=== PATIENT | female | born 1990 | race Caucasian/White ===

== ENCOUNTER 2016-09-16 05:19 | Observation (INO) | payer BC ==
[2016-09-16] VITALS (9 sets, daily range): BP systolic 112–128; BP diastolic 60–67
[~2016-09-16] VITALS: Ht 175.3 cm; Wt 106.1 kg
--- NOTE | 2016-09-16 09:11 | DIAGNOSTIC IMAGING REPORT ---
PROCEDURE: ABDOMEN/PELVIS WITH CONTRAST CLINICAL INDICATION: ABDOMINAL PAIN, pelvic pain TECHNIQUE: 125 ml of Isovue 300 were injected intravenously and axial images were obtained of the abdomen and pelvis with sagittal and coronal reformations. COMPARISON: None. FINDINGS: ABDOMEN: Clear lung bases. Normal sized heart. No hiatal hernia. The liver, gallbladder, adrenal glands, kidneys, and spleen are normal. 7 mm lipoma in the distal tail of the pancreas. The abdominal aorta is normal in its course and caliber. No atherosclerosis. There are no suspicious calcifications, retroperitoneal adenopathy or masses. The stomach, upper bowel loops, and mesentery are normal. Intact anterior abdominal wall. No free fluid or inflammation. The appendix is mildly enlarged measuring approximately 9 mm in the proximal aspect. There is a 9 mm density within the proximal lumen. Distally, the appendiceal caliber becomes normal. No significant periappendiceal inflammatory changes or wall hyperemia. PELVIS: The pelvic small bowel loops are normal. Normal amount of stool in the colon and rectum. The uterus, ovaries, urinary bladder, and pelvic vessels are normal. No adenopathy, free fluid, or pelvic mass. Intact osseous structures. IMPRESSION: 1. Findings suspicious for early acute appendicitis. 2. Discussed with Dr. Riley in the emergency room. All CT scans at this facility use dose modulation, iterative reconstruction, and/or weight-based dosing when appropriate to reduce radiation dose to as low as reasonably achievable.
--- NOTE | 2016-09-16 09:17 | DIAGNOSTIC IMAGING REPORT ---
PROCEDURE: US ABDOMEN ULTRASOUND-LIMITED INDICATION: RUQ PAIN TECHNIQUE: Briones scale and color Doppler sonographic images of the abdomen were obtained. COMPARISON: None. FINDINGS: Liver measures 19.9 cm. Normal gallbladder and CBD (5 mm). Negative Escoto's sign. Normal head of the pancreas. Remainder of the pancreas is obscured by bowel gas. Aorta and IVC are patent. Normal hepatopetal flow. Normal right kidney measures 12.6 cm. IMPRESSION: 1. Poor visualization of the pancreas, otherwise negative right upper quadrant ultrasound
--- NOTE | 2016-09-16 09:38 | ED ORDER SUMMARY ---
..... Patient: ZACK HAINES OrderSheet [facility] VisitID: [id number] [place] [address] 25y, F Registration Date/Time: 09/16/2016 ORDER SHEET Weight: 103.8 kg (stated) Allergies: No Known Drug Allergy GENERAL ORDERS: Urine Urgent (05:28 09/16/2016 AMcQuoid ER Tech1 per protocol) (Ack 5:28 AMcQuoid ER Tech1) (5:32 AMcQuoid ER Tech1) UA-Culture if indicated Urgent (05:28 09/16/2016 AMcQuoid ER Tech1 per protocol) (Ack 5:28 AMcQuoid ER Tech1) (5:32 AMcQuoid ER Tech1) CMP Urgent (06:00 09/16/2016 AMcQuoid ER Tech1 verbal order read back to Elizabeth BRADFORD) (6:10 AMcQuoid ER Tech1) CBC w Diff Urgent (06:00 09/16/2016 AMcQuoid ER Tech1 verbal order read back to Elizabeth BRADFORD) (6:10 AMcQuoid ER Tech1) Amylase Urgent (06:00 09/16/2016 AMcQuoid ER Tech1 verbal order read back to Elizabeth BRADFORD) (6:10 AMcQuoid ER Tech1) Lipase Urgent (06:00 09/16/2016 AMcQuoid ER Tech1 verbal order read back to Elizabeth BRADFORD) (6:10 AMcQuoid ER Tech1) US Abdomen Limited (Yes) Urgent (07:55 09/16/2016 Elizabeth BRADFORD) (Ack 7:57 Dane) (8:30 Dane) CT Abd/Pel w Cont (No) (N/A) Urgent (08:29 09/16/2016 Elizabeth BRADFORD) (Ack 8:30 Dane) (8:55 Dane) MEDICATION ORDERS: IV FLUIDS: Toradol IV 30 mg (NOW) (07:04 09/16/2016 Elizabeth BRADFORD) (Ack 7:22 SStone R.N.) (7:29 SStone R.N.) IV Saline Lock (07:04 09/16/2016 Elizabeth BRADFORD) (7:14 CBradburn R.N.) Invanz IV 1 gm (NOW) (09:53 09/16/2016 Elizabeth BRADFORD) (Ack 10:05 SStone R.N.) (10:50 SStone R.N.) Dilaudid IV 1 mg (HIGH ALERT MEDICATION, NOW) (09:54 09/16/2016 Elizabeth BRADFORD) (Ack 10:05 SStone R.N.) (10:23 SStone R.N.) Zofran IV 4 mg (NOW) (09:54 09/16/2016 Elizabeth BRADFORD) (Ack 10:05 SStone R.N.) (10:23 SStone R.N.) IV Lactated Ringers : initial bolus none -, then 150 mL/hr (NOW) (09:54 09/16/2016 Elizabeth BRADFORD) (Ack 10:05 SStone R.N.) (10:24 SStone R.N.) ORDER SHEET NOTES: [Electronically signed by Manuela Huber R.N. (11:25 09/16/2016)] [Electronically signed by Vera Riley MD (12:06 09/24/2016)] [Electronically locked/signed by Manuela Huber R.N. (11:25 09/16/2016)]
--- NOTE | 2016-09-16 09:38 | ED CLINICAL REPORT ---
Clinical Report - Physicians/Mid Levels [facility] [address] [place] [address] 09/16/2016 5:21 Patient: ZACK HAINES Time Seen: 06:28. Arrived- By private vehicle. Historian- patient. HISTORY OF PRESENT ILLNESS Chief Complaint: ABDOMINAL PAIN. At its maximum, severity described as moderate. When seen in the E.D., severity described as moderate. Modifying factors- worsened by movement. Not relieved by anything. It is described as "pain" and it is described as located in the right abdomen. This started several days ago and is still present. The patient has had nausea and intermittent vomiting. No loss of appetite or diarrhea. Similar symptoms previously: None. Recent medical care: Not recently seen/assessed. REVIEW OF SYSTEMS No constipation, black stools, hematemesis, difficulty with urination or pain with urination. No urinary frequency, bloody stools, fever, headache or sore throat. No blurred vision, chest pain, difficulty breathing, cough or joint pain. No skin rash, chills or back pain. Denies current . All systems otherwise negative, except as recorded above. PAST HISTORY Problems: Hepatitis. Additional Surgeries: no known surgeries. Medications: Citrimax HCA, diet supplement. Tylenol Oral. Apple Cider Vinegar Oral. MedroxyPROGESTERone Acetate Oral. Allergies: No Known Drug Allergy. SOCIAL HISTORY Smoker- current status unknown. History of drug use: marijuana. No alcohol use. ADDITIONAL NOTES The nursing notes have been reviewed. PHYSICAL EXAM Vital Signs: 09/16/2016 05:35 BP: 130/71. HR: 82. RR: 18. O2 saturation: 96%. Temp: 98.1 F. Have been reviewed. Appearance: Alert. Oriented X3. No acute distress. Eyes: Pupils equal, round and reactive to light. Eyes normal inspection. ENT: Nose normal. Neck: Normal inspection. CVS: Normal heart rate and rhythm. Heart sounds normal. Pulses normal. Respiratory: No respiratory distress. Breath sounds normal. Abdomen: Soft. Moderate tenderness in the right lower quadrant. No guarding or rebound tenderness. Back: Normal inspection. No CVA tenderness. Skin: Skin warm and dry. Normal skin color. No rash. Normal skin turgor. Extremities: Extremities exhibit normal ROM. No lower extremity edema. Neuro: Oriented X 3. No motor deficit. No sensory deficit. LABS, X-RAYS, AND EKG Abdominal CT: Normal aorta. Normal liver, spleen, pancreas, gallbladder and adrenals. Normal kidneys. Uterus normal. Adnexa normal. Bladder normal. There is evidence of appendicitis. No mass. No free fluid. No bony lesion. No diverticulitis. Study type: abdomen and pelvis. Abdominal CT performed with IV contrast. The study was independently viewed by me, interpreted by the radiologist and contemporaneously by me and discussed with the radiologist. Prior studies were not available for comparison. Laboratory Tests: UA-Culture if indicated: (DEIDRE: 09/16/2016 05:30) ( MsgRcvd 09/16/2016 05:56) Final results Test Result Flag Units (Reference) URINE COLOR YELLOW URINE APPEARANCE CLEAR URINE GLUCOSE NEGATIVE (NEGATIVE) URINE BILIRUBIN 1+ (NEGATIVE) URINE KETONE NEGATIVE (NEGATIVE) URINE SPECIFIC GRAVITY >= 1.030 (1.010-1.030) URINE PH 6.0 (5.0-8.0) URINE PROTEIN TRACE (NEGATIVE) URINE UROBILINOGEN 0.2 EU/dL (0.2-1.0) URINE NITRITE NEGATIVE (NEGATIVE) URINE BLOOD 3+ (NEGATIVE) URINE LEUK ESTERASE NEGATIVE (NEGATIVE) URINE RBC 0-1 rbc/hpf (0-1) URINE WBC 0-1 wbc/hpf (0-1) URINE EPITHELIAL CELLS 3-5 EPI/hpf (0-5) URINE BACTERIA FEW (1+) (NONE SEEN) URINE COMMENT CULT NOT INDICATED 2+ MUCUSICTO TEST NEGURINE CULTURES ARE SET-UP BASED ON THE FOLLOWING CRITERIA:POSITIVE NITRITEPOSITIVE LEUKOCYTE ESTERASEGREATER THAN 10 WHITE BLOOD CELLSMODERATE (2+) OR GREATER BACTERIA Urine: (DEIDRE: 09/16/2016 05:30) ( ScgRcvd 09/16/2016 05:45) Final results Test Result Flag Units (Reference) URINE NEGATIVE CBC w Diff: (EDIDRE: 09/16/2016 06:10) ( MsgRcvd 09/16/2016 06:16) Final results Test Result Flag Units (Reference) WHITE BLOOD COUNT 10.2 K/uL (4.5-11.5) RED BLOOD COUNT 3.89 L M/uL (4.00-5.20) HEMOGLOBIN 12.3 gm/dL (12.0-16.0) HEMATOCRIT 36.5 % (36.0-46.0) MEAN CELL VOLUME 94 fL (80-100) MEAN CORPUSCULAR HGB 32 pg (26-34) MEAN CORPUSCULAR HGB CONC 34 g/dL (31-37) RED CELL DISTRIBUTION WIDTH 12.7 % (11.6-14.8) PLATELET COUNT 219 K/uL (150-400) NEUTROPHIL % 75.1 H % (50-75) LYMPH % 15.8 L % (25-40) MONO % 7.5 % (3-14) EOSINOPHIL % 1.2 % (0-4) BASOPHIL % 0.4 % (0-2) CMP: (DEIDRE: 09/16/2016 06:10) ( MsgRcvd 09/16/2016 06:29) Final results Test Result Flag Units (Reference) GLUCOSE 99 mg/dL (70-110) BUN 14 mg/dL (7-18) CREATININE 0.7 mg/dL (0.6-1.3) Estimated GFR >60 mL/min Estimated GFR- >60 mL/min Note: Persistent reduction over 3 months in eGFR<60 mL/min/1.73 m2 defines CKD. Patients with eGFR values>=60 mL/min/1.73 m2 may also have CKD if evidence ofpersistent proteinuria. Additional information may be foundat www.kidney.org. SODIUM 139 mmol/L (136-145) POTASSIUM 3.8 mmol/L (3.5-5.1) CHLORIDE 102 mmol/L (98-107) CARBON DIOXIDE 26 mmol/L (21-32) CALCIUM 8.3 L mg/dL (8.5-10.1) TOTAL PROTEIN 8.0 g/dL (6.4-8.2) ALBUMIN 4.3 g/dL (3.3-5.0) BILIRUBIN, TOTAL 0.5 mg/dL (0.0-1.0) ALKALINE PHOSPHATASE 47 U/L (46-116) AST (SGOT) 18 U/L (15-37) ALT (SGPT) 34 U/L (12-78) LIPASE 171 U/L (73-393) AMYLASE 33 U/L (25-115) . Pulse Oximetry: 09/16/2016 05:35 O2 saturation: 96%. (FIO2 - room air). Interpretation: normal. PROGRESS AND PROCEDURES Course of Care: PT was given IV Toradol, Dilaudid, and Zofran for symptomatic relief. Work-up revealed early appendicitis. Pt was started on IV LR and Invanz. Discussed case with on-call health care provider, (Mckenna). Reviewed test results and need for additional work-up. Agreed upon treatment plan and decision to admit. Health care provider will see patient in ED. Old medical records reviewed. Disposition: Admitted to Acute Care via Surgery. Condition: stable and serious. CLINICAL IMPRESSION Acute appendicitis. No perforation or abscess. (Electronically signed by Vera Riley MD 09/24/2016 12:06)
--- NOTE | 2016-09-16 09:38 | ED ORDER SUMMARY ---
..... Patient: ZACK HAINES OrderSheet [facility] VisitID: [id number] [place] [address] 25y, F Registration Date/Time: 09/16/2016 ORDER SHEET Weight: 103.8 kg (stated) Allergies: No Known Drug Allergy GENERAL ORDERS: Urine Urgent (05:28 09/16/2016 AMcQuoid ER Tech1 per protocol) (Ack 5:28 AMcQuoid ER Tech1) (5:32 AMcQuoid ER Tech1) UA-Culture if indicated Urgent (05:28 09/16/2016 AMcQuoid ER Tech1 per protocol) (Ack 5:28 AMcQuoid ER Tech1) (5:32 AMcQuoid ER Tech1) CMP Urgent (06:00 09/16/2016 AMcQuoid ER Tech1 verbal order read back to Elizabeth BRADFORD) (6:10 AMcQuoid ER Tech1) CBC w Diff Urgent (06:00 09/16/2016 AMcQuoid ER Tech1 verbal order read back to Elizabeth BRADFORD) (6:10 AMcQuoid ER Tech1) Amylase Urgent (06:00 09/16/2016 AMcQuoid ER Tech1 verbal order read back to Elizabeth BRADFORD) (6:10 AMcQuoid ER Tech1) Lipase Urgent (06:00 09/16/2016 AMcQuoid ER Tech1 verbal order read back to Elizabeth BRADFORD) (6:10 AMcQuoid ER Tech1) US Abdomen Limited (Yes) Urgent (07:55 09/16/2016 Elizabeth BRADFORD) (Ack 7:57 Dane) (8:30 Dane) CT Abd/Pel w Cont (No) (N/A) Urgent (08:29 09/16/2016 Elizabeth BRADFORD) (Ack 8:30 Dane) (8:55 Dane) MEDICATION ORDERS: IV FLUIDS: Toradol IV 30 mg (NOW) (07:04 09/16/2016 Elizabeth BRADFORD) (Ack 7:22 SStone R.N.) (7:29 SStone R.N.) IV Saline Lock (07:04 09/16/2016 Elizabeth BRADFORD) (7:14 CBradburn R.N.) Invanz IV 1 gm (NOW) (09:53 09/16/2016 Elizabeth BRADFORD) (Ack 10:05 SStone R.N.) (10:50 SStone R.N.) Dilaudid IV 1 mg (HIGH ALERT MEDICATION, NOW) (09:54 09/16/2016 Elizabeth BRADFORD) (Ack 10:05 SStone R.N.) (10:23 SStone R.N.) Zofran IV 4 mg (NOW) (09:54 09/16/2016 Elizabeth BRADFORD) (Ack 10:05 SStone R.N.) (10:23 SStone R.N.) IV Lactated Ringers : initial bolus none -, then 150 mL/hr (NOW) (09:54 09/16/2016 Elizabeth BRADFORD) (Ack 10:05 SStone R.N.) (10:24 SStone R.N.) ORDER SHEET NOTES: [Electronically signed by Manuela Huber R.N. (11:25 09/16/2016)] [Electronically signed by Vera Riley MD (12:06 09/24/2016)] [Electronically locked/signed by Manuela Huber R.N. (11:25 09/16/2016)]
--- NOTE | 2016-09-16 09:38 | ED NURSING NOTES ---
Clinical Report - Nurses [facility] [place] [address] 09/16/2016 5:21 Patient: ZACK HAINES TRIAGE 05:35 09/16/16. BP: 130/71. HR: 82. RR: 18. O2 saturation: 96%. Temp: 98.1 F. Pain level now 09/18. --05:39 McQuoid, Tana, ER Tech1 Triage time 05:35. Acuity: LEVEL 3. Chief Complaint: ABDOMINAL PAIN and DIARRHEA. --05:47 Isabel Santos R.N. Weight: 103.8 kg stated. Height/Length: 108 inches Per Patient. BMI: 13.8. --05:35 McQuoid, Tana, ER Tech1. Medications MedroxyPROGESTERone Acetate Oral. --05:37 McQuoid, Tana, ER Tech1 Apple Cider Vinegar Oral. --05:37 McQuoid, Tana, ER Tech1 Tylenol Oral. --05:38 McQuoid, Tana, ER Tech1 Citrimax HCA, diet supplement. --05:39 McQuoid, Tana, ER Tech1. Allergies No Known Drug Allergy. --05:38 McQuoid, Tana, ER Tech1. History Arrived by private vehicle. Historian: patient. Unaccompanied. Primary physician ([facility]). ( [facility] PAST MEDICAL HX: Immunizations: up-to-date. Last normal menstrual period- Aug 28 2016. 0. Para 0. Abortions 0. Sexual history - sexually active. No contraception. SOCIAL HX: Smoker- current status unknown (electronic cigarrettes). History of occasional drug use: marijuana. Recently used drugs days ago. (2 days ago). No alcohol use. No infectious disease exposure. No known contact with a sick individual. ABUSE ASSESSMENT: No report of abuse. SELF HARM ASSESSMENT: A self harm assessment was performed. The patient answered "no" to the question "Have you recently felt down, depressed, or hopeless?", "Have you noticed less interest or pleasure in doing things?", "Do you have thoughts of harming or killing yourself?", "Are you here because you tried to hurt yourself?", "Have you ever tried to hurt yourself before today?", "Have you recently had thoughts about harming or killing others?" and "Do you have any dangerous items in your possession?". FALL RISK ASSESSMENT: Fall risk assessment completed. No fall risk identified. NUTRITIONAL RISK ASSESSMENT: The nutritional risk assessment revealed no deficiencies. FUNCTIONAL ASSESSMENT: Functional assessment: no impairments noted. LEARNING NEEDS ASSESSMENT: The learning needs assessment revealed no barriers. SKIN INTEGRITY ASSESSMENT: Skin integrity risk assessment completed. No skin integrity risk identified. --05:47 Isabel Santos R.N. PROBLEMS: Hepatitis. --05:47 Isabel Santos R.N. ADDITIONAL SURGERIES: no known surgeries. Interventions ID band on patient. --05:47 Isabel Santos R.N. PHYSICAL ASSESSMENT Ambulatory to room. GENERAL / NEURO / PSYCH: Alert. Oriented X 4. Appears in no acute distress. HEENT: Mucous membranes are pink. RESPIRATORY: Respirations not labored. Breath sounds within normal limits. CVS: Normal sinus rhythm noted. Capillary refill less than 2 seconds. GI / : The patient has diarrhea (on Tuesday). This has occurred twice. Obesity. Abdomen nontender. Abdominal tenderness in the suprapubic area. Bowel sounds within normal limits. No nausea noted. No urethral discharge or vaginal discharge. SKIN: Skin is warm and dry. --05:48 Isabel Santos R.N. NURSING PROGRESS NOTES 05:32. Checked patient name and birthdate: patient confirmed. Clean catch urine collected; sample sent to lab. Specimen labeled in the presence of the patient. --05:32 McQuoid, Tana, ER Tech1 Patient gowned. Reassurance given. Two patient identifiers checked. Call light placed in reach. Side rails up x 1. Bed placed in lowest position. Brakes of bed on. --05:48 Isabel Santos R.N. Patient ready for evaluation- chart flagged. --05:48 Isabel Santos R.N. 06:14. Checked patient name and birthdate: patient confirmed. Blood samples drawn from the right antecubital space by tech per protocol ; labeled in presence of the patient: rainbow set. --06:14 BoazQubrandi, Tana, ER Tech1 07:14 09/16/2016 Site #1 started via IV in the right antecubital space with an 20g angiocath, with aseptic technique and good blood return; one attempt. Saline lock flushed with 10 mL saline. --07:14 Isabel Santos R.N. 07:29 09/16/2016 Toradol IVP 30 mg given over 3 minute(s) via site #1. Allergies verified and confirmed 5 rights. IV patency established. IV site checked: no pain, redness, or swelling. IV flushed thoroughly pre- and post-medication administration. --07:29 Manuela Huber R.N. ( Assumed care, report from HAN[facility]. pt. reports she is feeling slightly better, but still painful 4-510.). --07:30 Manuela Huber R.N. 07:29 09/16/16. BP: 100/47. HR: 58. RR: 18. O2 saturation: 95%. Pain level now: 4/10. --07:30 Manuela Huber R.N. ( Ultrasound in room.). --08:05 Manuela Huber R.N. 09:01 09/16/16. BP: 113/51. HR: 65. RR: 16. O2 saturation: 98%. --09:01 Manuela Huber R.N. ( Pt reports pain level improved since Toradol, now a constant 410 and tolerable.). --09:02 Manuela Huber R.N. 10:22 09/16/16. BP: 120/50. HR: 66. O2 saturation: 96%. --10:23 Manuela Huber R.N. 10:09/16/2016 Dilaudid (HYDROmorphone HCl PF) IVP 1 mg given over 2 minute(s) via site #1. IV patency established. IV site checked: no pain, redness, or swelling. IV flushed thoroughly pre- and post-medication administration. --10:23 Manuela Huber R.N. 10:09/16/2016 Zofran (Ondansetron HCl) IVP 4 mg given over 2 minute(s) via site #1. IV patency established. IV site checked: no pain, redness, or swelling. IV flushed thoroughly pre- and post-medication administration. --10:23 Manuela Huber R.N. 10:24 09/16/2016 Started bag #1 1000 mL IV Fluids IV LACTATED RINGERS; at 150 mL/hr over 6 hour(s) via site #1. Allergies verified and confirmed 5 rights. IV patency established. IV site checked: no pain, redness, or swelling. IV flushed thoroughly pre- and post-medication administration. --10:24 Manuela Huber R.N. 10:50 09/16/2016 Invanz IVP 1 gm given over 1 hour(s) via site #1. Allergies verified and confirmed 5 rights. IV patency established. IV site checked: no pain, redness, or swelling. IV flushed thoroughly pre- and post-medication administration. --10:50 Manuela Huber R.N. 10:50 09/16/16. BP: 101/40. HR: 58. RR: 16. O2 saturation: 96%. Temp: 98.3 F. Pain level now: 06/18. --10:51 Manuela Huber R.N. ( attempt to call report to floor.). --11:03 Manuela Huber R.N. 11:25 09/16/2016 IV Fluids IV LACTATED RINGERS Discontinued: bag #1 infused upon admission. Total amount infused: 150 mL. IV patency established. IV site checked: no pain, redness, or swelling. IV flushed thoroughly. --11:25 Manuela Huber R.N. DISPOSITION / DISCHARGE Departure time: 1120. Admitted to Acute Care (11:20). Transported via stretcher by [facility]. Report was given to a nurse via a phone call. Report included patient's care, treatment, medications, reviewed medication reconcilliation, and condition (including any recent changes or anticipated changes). All questions were answered. Report was acknowledged. (alban). --11:16 Manuela Huber R.N. 11:15 09/16/16. BP: 87/44. HR: 62. RR: 14. O2 saturation: 95%. --11:16 Manuela Huber R.N. 11:18 09/16/16. BP: 103/49. --11:19 Manuela Huber R.N. 11:25 09/16/16. Temp: 98.1 F. Pain level now: 06/18. --11:25 Manuela Huber R.N. Locked/Released at 09/16/2016 11:25 by Manuela Huber R.N.
[2016-09-16] MEDS ORDERED: MEDROXYPROGESTER5 MG PO (11:45)
[2016-09-16] MEDS ORDERED: APPLE CIDER VINEGAR (12:22)
[2016-09-16] MEDS ORDERED: [UNRECOGNIZED DRUG - OTHER] (12:24)
[2016-09-16] MEDS ORDERED: ABILIFY5 MG PO (12:24)
[2016-09-16] MEDS ORDERED: NORCO1 TA1 PO (15:52)
--- NOTE | 2016-09-16 15:53 | Provider's Discharge Care Plan ---
Problem, Goal, Plan Problem List 1. Appendicitis, acute
--- NOTE | 2016-09-16 15:53 | Provider's Discharge Care Plan ---
Problem, Goal, Plan Problem List 1. Appendicitis, acute
--- NOTE | 2016-09-16 20:21 | CONSULTATION REPORT ---
DATE OF CONSULTATION: 09/16/2016 CHIEF COMPLAINT: 1. Abdominal pain HISTORY OF PRESENT ILLNESS: The patient is a 25-year-old woman who reported 4 days ago that she developed some vague abdominal pain and diarrhea. She had decreased appetite. At that time, she had some nausea. Things have improved slightly and she had some intermittent lower nonlocalized abdominal pains over the next few days; however, today, the patient developed persistent lower abdominal pain localized to the right lower quadrant that became increasingly severe, causing her to present to the emergency department. MEDICAL/SURGICAL HISTORY: Past medical history: Hepatitis C, which has been treated with curative medical therapy. She also has polycystic ovarian disease. Past surgical history: She had a liver biopsy, as well as PE tubes at the age of 3. MEDICATIONS: 1. OCP to regulate her periods. 2. Some form of diet pill. ALLERGIES: 1. NONE TO MEDICATIONS. SOCIAL HISTORY: The patient is . She is G0, P0. 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 She smokes e-cigarettes, but not regular cigarettes. She stopped using cannabis about 2 days ago. She does not take ethanol. FAMILY HISTORY: Her mother had diabetes and of congestive heart failure at age 52. REVIEW OF SYSTEMS: The patient reports long-term irregular periods and episodes of spotting. She uses hormonal pills to regulate her cycles. She reports no additional symptoms. She denied bleeding at the time of her diarrheal episode and has not had any rectal bleeding, any hematemesis, palpitations, chest pain, shortness of breath, productive cough, joint or extremity problems, neurologic problems, vision or auditory problems. PHYSICAL EXAMINATION: VITAL SIGNS: Blood pressure 130/71, heart rate of 82, respirations 18, temperature is 98.1, O2 saturation 96%. Weight 103.8 kg, height 108 inches, BMI of 13.8. GENERAL: The patient is alert and cooperative. She responds appropriately. She is oriented to time and place. HEENT: Ears and nose without gross external lesions. Eyes are equal. She is anicteric. NECK: Without palpable masses or thyromegaly. CHEST: Clear without wheeze or rales. HEART: Regular, without murmur or gallop. ABDOMEN: Reveals localized tenderness in the right lower quadrant with involuntary guarding at that location. The patient is nondistended. Bowel sounds are active. EXTREMITIES: Symmetric. She appears to move without restriction. LAB/IMAGING: Lab tests show a normal white count of 10.8, hemoglobin and hematocrit of 12.3 and 36.5. Urinalysis is negative. Negative test. She has normal electrolytes, lipase and amylase. Abdominal ultrasound was negative for gallbladder disease. Her abdominal CT showed a 9 mm appendix with a density at its base suspicious for early acute appendicitis. IMPRESSION: 1. Acute appendicitis. PLAN: I have recommended the patient undergo a laparoscopic appendectomy. I talked to the patient about alternatives, benefits and risks. I talked to her about alternatives such as antibiotic therapy or open appendectomy. I talked about risks including infection, bleeding, scars, pain, damage to local structures and alternative diagnoses. The patient appeared to understand these and other risks and would like to proceed as described to her.
--- NOTE | 2016-09-16 20:27 | OPERATIVE REPORT ---
DATE OF SURGERY: 09/16/2016 SURGEON: Maurilio Andres MD PREOPERATIVE DIAGNOSIS: 1. Acute appendicitis POSTOPERATIVE DIAGNOSIS: 1. Acute suppurative appendicitis PROCEDURE PERFORMED: 1. Laparoscopic appendectomy ANESTHESIA: General. COMPLICATIONS: No intraoperative complications were encountered. INDICATIONS: The patient is a 25-year-old woman with a 4-day history of abdominal symptoms, culminating in localized right lower quadrant pain. The patient also had an abnormal CT scan consistent with acute appendicitis. SURGICAL TECHNIQUE: The patient was taken to the operating room, where a general anesthetic was administered and the patient prepped and draped in the usual sterile fashion. The patient had received IV antibiotics. After sterile prep and drape, a local anesthetic of 0.5% Marcaine with epinephrine was used at each incision site. Three trocars were placed with the first one in the umbilicus after insufflating with a Veress needle. A 5 in the lower midline and a 10 mm in suprapubic position were placed. The appendix was visualized and found be acutely suppurative with erythema and a fibrinous peel. The mesoappendix was taken down using the Thunderbeat device and the base of the appendix doubly clipped with Hem-o-Peter clips. The appendix was clipped on the specimen side, partially transected and bipolar cautery applied to the exposed mucosa. The appendix was then fully transected and pulled up into the cannula and removed from the abdomen. Visualization also demonstrated a large whitish ovary on the right side without superficial cystic structures. Marcaine was instilled, gas was evacuated, and the 10 mm port sites closed at the skin with interrupted subcuticular 4-0 Vicryl suture. Steri-Strips and dressings were placed at all sites. The patient left in good condition.
--- NOTE | 2016-09-24 12:07 | ED DISCHARGE INSTRUCTIONS ---
Patient: ZACK HAINES General Instructions [facility] VisitID: [id number] [address] [place] [address] 25y, F Registration Date/Time: 09/16/2016 Acute appendicitis. No perforation or abscess. (Electronically signed by Vera Riley MD 09/24/2016 12:06)
--- NOTE | 2016-09-24 12:07 | ED MED RECONCILIATION SUMMARY ---
Patient: ZACK HAINES Medication Reconciliation Report [facility] VisitID: [id number] [place] [address] 25y, F Registration Date/Time: 09/16/2016 Weight: 103.8 kg Height/Length: 108 in. BMI: 13.8 ALLERGIES: No Known Drug Allergy The patient's Home Medications are listed below: THE FOLLOWING MEDICATIONS NEED TO BE RECONCILED: Apple Cider Vinegar Oral Citrimax HCA, diet supplement MedroxyPROGESTERone Acetate Oral Tylenol Oral The source(s) of the original Home Medication information: Not obtained. The following Medications were given to the patient in the Emergency Department: Toradol [IVP] IVP 30 mg, administered: 09/16/2016 7:29:00 AM Dilaudid [IVP] IVP 1 mg, administered: 09/16/2016 10:13:00 AM Zofran [IVP] IVP 4 mg, administered: 09/16/2016 10:13:00 AM IV LACTATED RINGERS IV Fluids bolus 0, then 150 mL/hr, administered: 09/16/2016 10:24:00 AM Invanz [IVP] IVP 1 gm, administered: 09/16/2016 10:50:00 AM The following Medications were prescribed to the patient: None.
--- NOTE | 2016-09-24 12:07 | ED DISCHARGE INSTRUCTIONS ---
Patient: ZACK HIANES General Instructions [facility] VisitID: [id number] [address] [place] [address] 25y, F Registration Date/Time: 09/16/2016 Acute appendicitis. No perforation or abscess. (Electronically signed by Vera Riley MD 09/24/2016 12:06)
--- NOTE | 2016-09-24 12:07 | ED MAR SUMMARY ---
..... Medication Administration Record [facility] [address] [place] [address] Patient: ZACK HAINES Visit ID: [id number] 25y, F Weight: 103.8 kg Height/Length: 108 in BMI: 13.8 ALLERGIES: No Known Drug Allergy Given 07:29 09/16/2016 Manuela Huber R.N. Medication Administered: TORADOL [IVP], Dose: 30 mg IVP over 3 minute(s), Site: #1 right AC. Medication Ordered: Toradol IV 30 mg (NOW). Given 10:09/16/2016 Manuela Huber R.N. Medication Administered: DILAUDID [IVP] (HYDROMORPHONE HCL PF), Dose: 1 mg IVP over 2 minute(s), Site: #1 right AC. Medication Ordered: Dilaudid IV 1 mg (HIGH ALERT MEDICATION, NOW). Given 10:09/16/2016 Manuela Huber R.N. Medication Administered: ZOFRAN [IVP] (ONDANSETRON HCL), Dose: 4 mg IVP over 2 minute(s), Site: #1 right AC. Medication Ordered: Zofran IV 4 mg (NOW). Start 10:24 09/16/2016 Manuela Huber R.N., Stop 11:25 09/16/2016 Manuela Huber R.N. Medication Administered: IV LACTATED RINGERS, Dose: IV Fluids over 6 hour(s), Rate: 150 mL/hr, Dispensed: 1000 mL bag, Site: #1 right AC. Medication Ordered: IV Lactated Ringers : initial bolus none -, then 150 mL/hr (NOW). Given 10:50 09/16/2016 Manuela Huber R.N. Medication Administered: INVANZ [IVP], Dose: 1 gm IVP over 1 hour(s), Site: #1 right AC. Medication Ordered: Invanz IV 1 gm (NOW).
--- NOTE | 2016-09-24 12:07 | ED MAR SUMMARY ---
..... Medication Administration Record [facility] [address] [place] [address] Patient: ZACK HAINES Visit ID: [id number] 25y, F Weight: 103.8 kg Height/Length: 108 in BMI: 13.8 ALLERGIES: No Known Drug Allergy Given 07:29 09/16/2016 Manuela Huber R.N. Medication Administered: TORADOL [IVP], Dose: 30 mg IVP over 3 minute(s), Site: #1 right AC. Medication Ordered: Toradol IV 30 mg (NOW). Given 10:09/16/2016 Manuela Huber R.N. Medication Administered: DILAUDID [IVP] (HYDROMORPHONE HCL PF), Dose: 1 mg IVP over 2 minute(s), Site: #1 right AC. Medication Ordered: Dilaudid IV 1 mg (HIGH ALERT MEDICATION, NOW). Given 10:09/16/2016 Manuela Huber R.N. Medication Administered: ZOFRAN [IVP] (ONDANSETRON HCL), Dose: 4 mg IVP over 2 minute(s), Site: #1 right AC. Medication Ordered: Zofran IV 4 mg (NOW). Start 10:24 09/16/2016 Manuela Huber R.N., Stop 11:25 09/16/2016 Manuela Huber R.N. Medication Administered: IV LACTATED RINGERS, Dose: IV Fluids over 6 hour(s), Rate: 150 mL/hr, Dispensed: 1000 mL bag, Site: #1 right AC. Medication Ordered: IV Lactated Ringers : initial bolus none -, then 150 mL/hr (NOW). Given 10:50 09/16/2016 Manuela Huber R.N. Medication Administered: INVANZ [IVP], Dose: 1 gm IVP over 1 hour(s), Site: #1 right AC. Medication Ordered: Invanz IV 1 gm (NOW).
--- NOTE | 2016-09-24 12:07 | ED MED RECONCILIATION SUMMARY ---
Patient: ZACK HAINES Medication Reconciliation Report [facility] VisitID: [id number] [place] [address] 25y, F Registration Date/Time: 09/16/2016 Weight: 103.8 kg Height/Length: 108 in. BMI: 13.8 ALLERGIES: No Known Drug Allergy The patient's Home Medications are listed below: THE FOLLOWING MEDICATIONS NEED TO BE RECONCILED: Apple Cider Vinegar Oral Citrimax HCA, diet supplement MedroxyPROGESTERone Acetate Oral Tylenol Oral The source(s) of the original Home Medication information: Not obtained. The following Medications were given to the patient in the Emergency Department: Toradol [IVP] IVP 30 mg, administered: 09/16/2016 7:29:00 AM Dilaudid [IVP] IVP 1 mg, administered: 09/16/2016 10:13:00 AM Zofran [IVP] IVP 4 mg, administered: 09/16/2016 10:13:00 AM IV LACTATED RINGERS IV Fluids bolus 0, then 150 mL/hr, administered: 09/16/2016 10:24:00 AM Invanz [IVP] IVP 1 gm, administered: 09/16/2016 10:50:00 AM The following Medications were prescribed to the patient: None.
== END 2016-09-16 20:00 | disposition home or self-care (01) ==
LOC: ED SRH 05:19 → TRANS SRH 10:58 → ACUTE2 SRH 10:58
PROVIDERS: Surgery; ADMIT Emergency Medicine
PROC: 0DTJ4ZZ Resection of Appendix, Percutaneous Endoscopic Approach (ICD-10-PCS; principal; 2016-09-16 13:30)
DX: K35.80 Unspecified acute appendicitis (principal); R19.7 Diarrhea, unspecified; F17.290 Nicotine dependence, other tobacco product, uncomplicated; Z86.19 Personal history of other infectious and parasitic diseases
CPT/HCPCS: 29229; 29230; 29259; 29264; 50002; 60001; 70002; 80102; 80212; 80248; 82897; 83343; 83587; 83920; 83982; 84038; 84044; 90004; 90100; 92235; 92530; 93070; 95059

== ENCOUNTER 2016-09-17 20:41 | Emergency (ER) | payer BC ==
[~2016-09-17 20:41] MED LIST: ABILIFY5 MG PO; APPLE CIDER VINEGAR; MEDROXYPROGESTER5 MG PO; NORCO1 TA1 PO; [UNRECOGNIZED DRUG - OTHER]
--- NOTE | 2016-09-17 23:22 | ED CLINICAL REPORT ---
Clinical Report - Physicians/Mid Levels [facility] [address] [place] [address] 09/17/2016 20:42 Patient: ZACK HAINES Time Seen: 2100. Arrived- By private vehicle. Historian- patient. HISTORY OF PRESENT ILLNESS Chief Complaint: ABDOMINAL PAIN. This started today and is still present. It was gradual in onset and has been constant but is not gone now. At its maximum, severity described as severe. When seen in the E.D., severity described as severe. Modifying factors- worsened by movement. Relieved by rest. It is described as sharp and cramping. No radiation. It is described as located in the right pelvis. The patient has had nausea. No loss of appetite, vomiting or diarrhea. No additional abdominal pain. (+flatus). She has had recent travel. Similar symptoms previously: None. Recent medical care: The patient was seen recently and hospitalized (had an acute appy). REVIEW OF SYSTEMS No constipation, black stools, hematemesis, bloody stools or fever. She has had skin rash. All systems otherwise negative, except as recorded above. PAST HISTORY See nurses notes. Medications: Vicodin Oral 5 mg, 4x a day. Apple Cider Vinegar Oral. Citrimax HCA, diet supplement. MedroxyPROGESTERone Acetate Oral. Tylenol Oral. Allergies: No Known Drug Allergy. SOCIAL HISTORY Never smoker. No alcohol use or drug use. No recent travel. Is a local resident. ADDITIONAL NOTES The nursing notes have been reviewed. PHYSICAL EXAM Vital Signs: 09/17/2016 20:49 BP: 124/73. HR: 65. RR: 17. O2 saturation: 98%. Temp: 98.1 F. Pain level now: 8/10. Blood pressure normal. Oxygen saturation normal. Appearance: Alert. Oriented X3. Patient in mild distress. CVS: Normal heart rate and rhythm. Heart sounds normal. Pulses normal. Respiratory: No respiratory distress. Breath sounds normal. Chest nontender. No rales, rhonchi or wheezes. Abdomen: Soft. Moderate tenderness in the right lower quadrant. Bowel sounds normal. No mass. (anterior abdominal wounds consistent with recent laparoscopic surgery. wounds are c/d/i). Skin: Skin warm and dry. Normal skin color. No rash. Normal skin turgor. Extremities: Extremities exhibit normal ROM. No lower extremity edema. LABS, X-RAYS, AND EKG Laboratory Tests: UA-Culture if indicated: (DEIDRE: 09/17/2016 21:20) ( [facility] 09/17/2016 22:06) Final results Test Result Flag Units (Reference) URINE COLOR YELLOW URINE APPEARANCE CLEAR URINE GLUCOSE NEGATIVE (NEGATIVE) URINE BILIRUBIN NEGATIVE (NEGATIVE) URINE KETONE TRACE (NEGATIVE) URINE SPECIFIC GRAVITY 1.010 (1.010-1.030) URINE PH 6.0 (5.0-8.0) URINE PROTEIN TRACE (NEGATIVE) URINE UROBILINOGEN 0.2 EU/dL (0.2-1.0) URINE NITRITE NEGATIVE (NEGATIVE) URINE BLOOD 3+ (NEGATIVE) URINE LEUK ESTERASE POSITIVE (NEGATIVE) URINE RBC 3-5 rbc/hpf (0-1) URINE WBC 10-15 wbc/hpf (0-1) URINE EPITHELIAL CELLS 1-3 EPI/hpf (0-5) URINE BACTERIA FEW (1+) (NONE SEEN) URINE COMMENT CULTURE INDICATED URINE CULTURES ARE SET-UP BASED ON THE FOLLOWING CRITERIA:POSITIVE NITRITEPOSITIVE LEUKOCYTE ESTERASEGREATER THAN 10 WHITE BLOOD CELLSMODERATE (2+) OR GREATER BACTERIA CBC w Diff: (DEIDRE: 09/17/2016 21:00) ( [facility] 09/17/2016 21:21) Final results Test Result Flag Units (Reference) WHITE BLOOD COUNT 8.4 K/uL (4.5-11.5) RED BLOOD COUNT 3.93 L M/uL (4.00-5.20) HEMOGLOBIN 12.4 gm/dL (12.0-16.0) HEMATOCRIT 36.9 % (36.0-46.0) MEAN CELL VOLUME 94 fL (80-100) MEAN CORPUSCULAR HGB 32 pg (26-34) MEAN CORPUSCULAR HGB CONC 34 g/dL (31-37) RED CELL DISTRIBUTION WIDTH 13.0 % (11.6-14.8) PLATELET COUNT 233 K/uL (150-400) NEUTROPHIL % 62.1 % (50-75) LYMPH % 28.8 % (25-40) MONO % 7.6 % (3-14) EOSINOPHIL % 0.6 % (0-4) BASOPHIL % 0.9 % (0-2) CMP: (DEIDRE: 09/17/2016 21:00) ( MsgRcvd 09/17/2016 21:34) Final results Test Result Flag Units (Reference) GLUCOSE 96 mg/dL (70-110) BUN 10 mg/dL (7-18) CREATININE 0.8 mg/dL (0.6-1.3) Estimated GFR >60 mL/min Estimated GFR- >60 mL/min Note: Persistent reduction over 3 months in eGFR<60 mL/min/1.73 m2 defines CKD. Patients with eGFR values>=60 mL/min/1.73 m2 may also have CKD if evidence ofpersistent proteinuria. Additional information may be foundat www.[email or web address].org. SODIUM 144 mmol/L (136-145) POTASSIUM 4.4 mmol/L (3.5-5.1) CHLORIDE 106 mmol/L (98-107) CARBON DIOXIDE 29 mmol/L (21-32) CALCIUM 9.3 mg/dL (8.5-10.1) TOTAL PROTEIN 8.6 H g/dL (6.4-8.2) ALBUMIN 4.2 g/dL (3.3-5.0) BILIRUBIN, TOTAL 0.4 mg/dL (0.0-1.0) ALKALINE PHOSPHATASE 46 U/L (46-116) AST (SGOT) 20 U/L (15-37) ALT (SGPT) 32 U/L (12-78) . PROGRESS AND PROCEDURES Course of Care: the patient is a 25-year-old female presenting for a vaginal abdominal pain. Patient with recent abdominal surgery for acute appendicitis. Patient with right lower quadrant pain. At this time differential diagnosis includes urinary tract infection versus surgical pain. Did have a discussion with the patient in regards to the utility of imaging while here in the emergency department. I discussed with the patient plain film versus CT scan of the abdomen and pelvis. After discussion the risks and benefits of the procedure, patient decided to have a watch and wait approach because of the risk of radiation. No signs of bowel obstruction on patient's abdominal examination and history. Patient is passing flatus. The patient's workup was remarkable for the findings above. Patient with positive urinalysis. Be concern for cystitis given the patient's history. Did have a discussion with the patient in regards to the Jacobsen catheter that was used for the surgery. There were questioning why the Jacobsen catheter was placed. Had a discussion with them in regards to deflating the bladder and need for protection of the bladder and series competitions that can occur if the bladder was injured during the surgery. Patient however did have a urinary tract infection and is likely the result of the Jacobsen catheter however cannot be completely sure of this. Patient will be treated with antibiotics. Patient continues to be nontoxic. Pain has been controlled while here in the emergency department. Had a discussion with the patient in regards to her workup here in the emergency department including diagnosis, home care, follow-up, and return precautions including postsurgical return precautions and bowel instructions and precautions. All questions have been answered. The patient expressed understanding of these instructions and was agreeable to them. At the time of discharge, patient was in no acute distress. Pain is significantly been improved. Repeat abdominal exam is benign. Do not feel patient has a surgical abdomen or bowel obstruction. Disposition: Discharged. Condition: good. CLINICAL IMPRESSION Acute right lower quadrant abdominal pain. 09/17/2016 23:03 HR: 52. RR: 16. O2 saturation: 96%. Pain level now: 410. 09/17/2016 20:49 BP: 124/73. HR: 65. RR: 17. O2 saturation: 98%. Temp: 98.1 F. Pain level now: 8/10. Wound check Oxygen saturation normal. Acute urinary tract infection with cystitis and hematuria. INSTRUCTIONS Warnings: GENERAL WARNINGS: Return or contact your physician immediately if your condition worsens or changes unexpectedly, if not improving as expected, or if other problems arise. SPECIFICALLY, return if you develop pain, fever, vomiting, the inability to keep fluids down, blood in vomitus, blood in diarrhea, fainting or lightheadedness. Your Current Medications: STOP TAKING THE FOLLOWING MEDICATIONS: Vicodin Oral : 5 mg 4x a day. CONTINUE TAKING THE FOLLOWING MEDICATIONS: Apple Cider Vinegar Oral. Citrimax HCA, diet supplement*. MedroxyPROGESTERone Acetate Oral. Tylenol Oral. Prescription Medications: Zofran (orally disintegrating tablets) 4 mg: take 1 orally every 8 hours as needed for nausea and vomiting. Dispense ten (10). No refill. Substitution is permissible. Cephalexin 500 mg: take 1 capsule orally every 8 hours for 5 days. No refill. (disp 15 caps) Miralax: take 1 measuring cupful supplied every day as needed for constipation. Dispense twenty-six (26) ounce bottle. No refills. Substitution is permissible. Percocet 5 mg/325 mg: take 1-2 tablets orally every 6 hours as needed for pain. Dispense twenty (20). No refill. Substitution is permissible. OTC Medications: Magnesium Citrate (10-oz bottle) (available over the counter): take 1 bottle to achieve bowel movement. Repeat after 4 hours if needed. (disp 2 bottles. use on 09/19/2016 if you do not have a bowel movement) Follow-up: Return to the emergency department as needed. Follow up with your doctor in three days. Reason for referral: recheck today's concerns. Summary of care provided to patient via paper. Screening today revealed the patient's blood pressure to be in the normal range. The patient should follow up with a primary care provider for blood pressure management. Understanding of the discharge instructions verbalized by patient. (Electronically signed by Neto Virgen Dr. 09/19/2016 1:15)
--- NOTE | 2016-09-17 23:22 | ED ORDER SUMMARY ---
..... Patient: ZACK HAINES OrderSheet [facility] VisitID: [id number] [place] [address] 25y, F Registration Date/Time: 09/17/2016 ORDER SHEET Weight: 104.3 kg (stated) Allergies: No Known Drug Allergy GENERAL ORDERS: CBC w Diff Urgent (21:09/17/2016 JQuivey R.N. per protocol) (Ack 21:13 CHagerty ER Associate Brand Manager) (21:21 JQuivey R.N.) CMP Urgent (21:09/17/2016 JQuivey R.N. per protocol) (Ack 21:13 CHagerty ER Associate Brand Manager) (21:21 JQuivey R.N.) NPO (21:09/17/2016 JQuivey R.N. per protocol) (Ack 21:13 CHagerty ER Associate Brand Manager) (21:21 JQuivey R.N.) UA-Culture if indicated Urgent (21:09/17/2016 Bryan Tapia) (Ack 21:16 CHagerty ER Associate Brand Manager) (21:33 JQuivey R.N.) MEDICATION ORDERS: IV FLUIDS: IV Saline Lock (21:09/17/2016 JQuivey R.N. per protocol) (21:09 JQuivey R.N.) Dilaudid IV 1 mg (once now. may repeat once in 15 minutes for pain > 5/10) (21:14 09/17/2016 Bryan Tapia) (Ack 21:21 JQuivey R.N.) (21:33 JQuivey R.N.) Zofran IV 4 mg (NOW) (21:15 09/17/2016 Bryan Tapia) (Ack 21:21 JQuivey R.N.) (21:33 JQuivey R.N.) IV NS : initial bolus 1000 mL (1000 mL/hr), then none - for X1 (NOW) (21:15 09/17/2016 Bryan Tapia) (Ack 21:21 JQuivey R.N.) (21:32 JQuivey R.N.) Ceftriaxone IV 1 gm/50mL (NOW) (22:34 09/17/2016 Bryan Tapia) (Ack 22:59 JQuivey R.N.) (23:05 JQuivey R.N.) ORDER SHEET NOTES: [Electronically signed by Nicole Rodgers (23:53 09/17/2016)] [Electronically signed by Neto Virgen Dr. (01:15 09/19/2016)] [Electronically locked/signed by Nicole Rodgers (23:53 09/17/2016)]
--- NOTE | 2016-09-17 23:22 | ED ORDER SUMMARY ---
..... Patient: ZACK HAIENS OrderSheet [facility] VisitID: [id number] [place] [address] 25y, F Registration Date/Time: 09/17/2016 ORDER SHEET Weight: 104.3 kg (stated) Allergies: No Known Drug Allergy GENERAL ORDERS: CBC w Diff Urgent (21:09/17/2016 JQuivey R.N. per protocol) (Ack 21:13 CHagerty ER Window Repairer) (21:21 JQuivey R.N.) CMP Urgent (21:09/17/2016 JQuivey R.N. per protocol) (Ack 21:13 CHagerty ER Window Repairer) (21:21 JQuivey R.N.) NPO (21:09/17/2016 JQuivey R.N. per protocol) (Ack 21:13 CHagerty ER Window Repairer) (21:21 JQuivey R.N.) UA-Culture if indicated Urgent (21:09/17/2016 Bryan Tapia) (Ack 21:16 CHagerty ER Window Repairer) (21:33 JQuivey R.N.) MEDICATION ORDERS: IV FLUIDS: IV Saline Lock (21:09/17/2016 JQuivey R.N. per protocol) (21:09 JQuivey R.N.) Dilaudid IV 1 mg (once now. may repeat once in 15 minutes for pain > 5/10) (21:14 09/17/2016 Bryan Tapia) (Ack 21:21 JQuivey R.N.) (21:33 JQuivey R.N.) Zofran IV 4 mg (NOW) (21:15 09/17/2016 Bryan Tapia) (Ack 21:21 JQuivey R.N.) (21:33 JQuivey R.N.) IV NS : initial bolus 1000 mL (1000 mL/hr), then none - for X1 (NOW) (21:15 09/17/2016 Bryan Tapia) (Ack 21:21 JQuivey R.N.) (21:32 JQuivey R.N.) Ceftriaxone IV 1 gm/50mL (NOW) (22:34 09/17/2016 Bryan Tapia) (Ack 22:59 JQuivey R.N.) (23:05 JQuivey R.N.) ORDER SHEET NOTES: [Electronically signed by Nicole Rodgers (23:53 09/17/2016)] [Electronically signed by Neto Virgen Dr. (01:15 09/19/2016)] [Electronically locked/signed by Nicole Rodgers (23:53 09/17/2016)]
--- NOTE | 2016-09-17 23:22 | ED NURSING NOTES ---
Clinical Report - Nurses [facility] [address] [place] [address] 09/17/2016 20:42 Patient: ZACK HAINES TRIAGE Triage time 20:49. Acuity: LEVEL 3. Chief Complaint: ABDOMINAL PAIN. 20:54. Alert. SEPSIS SCREEN: Sepsis Screen. Negative (no infection suspected/documented). --20:56 Glen White R.N. 20:49 09/17/16. BP: 124/73. HR: 65. RR: 17. O2 saturation: 98% on room air. Temp: 98.1 F (oral). Pain level now: 8/10. --20:56 Glen White R.N. Weight: 104.3 kg stated. Height/Length: 69 inches Per Patient. BMI: 34. --20:53 Glen White R.N. Medications Apple Cider Vinegar Oral. Citrimax HCA, diet supplement. MedroxyPROGESTERone Acetate Oral. Tylenol Oral. --20:52 Glen White R.N. Vicodin Oral 5 mg, 4x a day. --20:52 Glen White R.N. Medication/allergy information source: the patient. --20:56 Glen White R.N. Allergies No Known Drug Allergy. --20:52 Glen White R.N. History Arrived by private vehicle. Historian: patient. Accompanied by spouse. Primary physician (Gisselle). This started today. ( Patient reports having an appendectomy yesterday and was D/C'd home at 1999 last night was doing fine last night then today pain has been getting worse). 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 PAST MEDICAL HX: Immunizations: up-to-date. Last normal menstrual period- August 28. SOCIAL HX: Never smoker. History of occasional drug use: marijuana. No alcohol use. No recent travel. No infectious disease exposure. ABUSE ASSESSMENT: No report of abuse. FALL RISK ASSESSMENT: Fall risk assessment completed. No fall risk identified. NUTRITIONAL RISK ASSESSMENT: The nutritional risk assessment revealed no deficiencies. FUNCTIONAL ASSESSMENT: Functional assessment: no impairments noted. LEARNING NEEDS ASSESSMENT: The learning needs assessment revealed no barriers. SKIN INTEGRITY ASSESSMENT: Skin integrity risk assessment completed. No skin integrity risk identified. --20:56 Glen White R.N. ( Surgeon - Dr. Andres). --21:10 Glen White R.N. PROBLEMS: Hepatitis. --20:52 Glen White R.N. ADDITIONAL SURGERIES: Appendectomy. --20:52 Glen White R.N. Interventions ID band on patient. To treatment room. --20:56 Glen White R.N. PHYSICAL ASSESSMENT 20:57. Ambulatory to room. Patient gowned. GENERAL / NEURO / PSYCH: Alert. Oriented X 4. HEENT: Mucous membranes are pink. RESPIRATORY: Respirations not labored. SKIN: Skin is warm and dry. --20:57 Glen White R.N. NURSING PROGRESS NOTES 20:58. Head of bed elevated. Two patient identifiers checked. Call light placed in reach. Bed placed in lowest position. Brakes of bed on. Patient ready for evaluation- chart flagged. --20:58 Glen White R.N. 21:04 09/17/2016 Site #1 started via IV in the right wrist with an 20g angiocath, with aseptic technique and good blood return; one attempt. Blood drawn: rainbow set. Labeled in the presence of the patient and sent to the lab. Saline lock flushed with 10 mL saline. --21:09 Glen White R.N. 21:15 Bladder scan by Feli SCHAFER 391ml. --21:20 Glen White R.N. 21:27 Patient to restroom to obtain urine sample. --21:28 Glen White R.N. 21:28. Patient ID band checked for patient name and birthdate: patient confirmed. Clean catch urine collected with return of yellow-colored urine; sample sent to lab for urinalysis. Specimen labeled in the presence of the patient. --21:30 Glen White R.N. 21:26 09/17/2016 Started bag #1 1000 mL IV Fluids IV NS (Saline); at 1000 mL/hr over 1 hour(s) via site #1 via IV pump. IV patency established. IV site checked: no pain, redness, or swelling. IV flushed thoroughly pre- and post-medication administration. --21:32 Glen White R.N. 21:28 09/17/2016 Dilaudid (HYDROmorphone HCl PF) IVP 1 mg given over 2 minute(s) via site #1. Allergies verified, confirmed 5 rights and sedative warning given to the patient. IV patency established. IV site checked: no pain, redness, or swelling. IV flushed thoroughly pre- and post-medication administration. --21:33 Glen White R.N. 21:30 09/17/2016 Zofran (Ondansetron HCl) IVP 4 mg given over 2 minute(s) via site #1. Allergies verified and confirmed 5 rights. IV patency established. IV site checked: no pain, redness, or swelling. IV flushed thoroughly pre- and post-medication administration. --21:33 Glen White R.N. 23:03 09/17/16. HR: 52. RR: 16. O2 saturation: 96%. Pain level now: 07/19. --23:04 Glen White R.N. The patient is calm and resting quietly. SKIN: Skin is warm and dry. Skin color within normal limits. --23:04 Glen White R.N. 22:27 09/17/2016 IV Fluids IV NS Discontinued: bag #1 infused. Total amount infused: 1000 mL. IV patency established. IV site checked: no pain, redness, or swelling. IV flushed thoroughly. --23:52 Nicole Rodgers 22:30 09/17/2016 IV Saline Lock Drip IV Discontinued. Total amount infused: 0 mL. --23:52 Nicole Rodgers 23:05 09/17/2016 Started 1 gm of Ceftriaxone IVPB in bag #1 50 mL; at 150 mL/hr over 20 minute(s) via site #1 via IV pump. Allergies verified and confirmed 5 rights. IV patency established. IV site checked: no pain, redness, or swelling. IV flushed thoroughly pre- and post-medication administration. --23:05 Glen White R.N. 23:20 09/17/2016 Site #1 removed upon discharge. Catheter intact. Pressure dressing applied. --23:52 Nicole Rodgers. DISPOSITION / DISCHARGE 23:28 09/17/16. BP: 111/56. HR: 57. RR: 15. O2 saturation: 99%. Temp: 97.8 F. Pain level now 5/10. --23:28 Nicole Rodgers Departure time: 23:29 Sep 17 2016. Condition at departure: improved. The goals identified in the patient's plan of care were met. No learning barriers present. Discharge instructions provided and reviewed with the patient. Reviewed warnings (Patient verbalized understanding of sedation warning.). Reviewed medication(s). Prescription(s) given to the patient (Ceftriaxone, percocet, miralax, zofran, magnesium citrate). Treatments reviewed. Reviewed referral to a primary care physician for followup. Patient verbalized understanding. Written instructions provided in [employer]. The patient was discharged by the physician. She was discharged home and accompanied by family. She left the Emergency Department ambulatory and via private vehicle. Family member driving. FALL RISK ASSESSMENT: Fall risk assessment completed. No fall risk identified. --23:50 Nicole Rodgers. Locked/Released at 09/17/2016 23:53 by Nicole Rodgers,
--- NOTE | 2016-09-19 01:16 | ED MAR SUMMARY ---
..... Medication Administration Record [facility] [address] [place] [address] Patient: ZACK HAINES Visit ID: [id number] 25y, F Weight: 104.3 kg Height/Length: 69 in BMI: 34 ALLERGIES: No Known Drug Allergy Start 21:26 09/17/2016 Glen White RBrittanyNBrittany, Stop 22:27 09/17/2016 Nicole Rodgers, Medication Administered: IV NS (SALINE), Dose: IV Fluids over 1 hour(s), Rate: 1000 mL/hr, Dispensed: 1000 mL bag, Site: #1 right wrist. Medication Ordered: IV NS : initial bolus 1000 mL (1000 mL/hr), then none - for X1 (NOW). Given 21:28 09/17/2016 Glen White R.N. Medication Administered: DILAUDID [IVP] (HYDROMORPHONE HCL PF), Dose: 1 mg IVP over 2 minute(s), Site: #1 right wrist. Medication Ordered: Dilaudid IV 1 mg (once now. may repeat once in 15 minutes for pain > 5/10). Given 21:30 09/17/2016 Glen White R.N. Medication Administered: ZOFRAN [IVP] (ONDANSETRON HCL), Dose: 4 mg IVP over 2 minute(s), Site: #1 right wrist. Medication Ordered: Zofran IV 4 mg (NOW). Start 23:05 09/17/2016 Glen White R.N. Medication Administered: CEFTRIAXONE [IVPB], Dose: 1 gm IVPB over 20 minute(s), Rate: 150 mL/hr, Dispensed: 50 mL bag, Site: #1 right wrist. Medication Ordered: Ceftriaxone IV 1 gm/50mL (NOW).
--- NOTE | 2016-09-19 01:16 | ED MED RECONCILIATION SUMMARY ---
Patient: ZACK HAINES Medication Reconciliation Report [facility] VisitID: [id number] [place] [address] 25y, F Registration Date/Time: 09/17/2016 Weight: 104.3 kg Height/Length: 69 in. BMI: 34.0 ALLERGIES: No Known Drug Allergy The patient's Home Medications are listed below: STOP TAKING THE FOLLOWING MEDICATIONS: Vicodin Oral 5 mg, 4x a day CONTINUE TAKING THE FOLLOWING MEDICATIONS: Apple Cider Vinegar Oral Citrimax HCA, diet supplement MedroxyPROGESTERone Acetate Oral Tylenol Oral The source(s) of the original Home Medication information: patient The following Medications were given to the patient in the Emergency Department: IV NS IV Fluids bolus 0, then 1000 mL/hr, administered: 09/17/2016 9:26:00 PM Dilaudid [IVP] IVP 1 mg, administered: 09/17/2016 9:28:00 PM Zofran [IVP] IVP 4 mg, administered: 09/17/2016 9:30:00 PM Ceftriaxone [IVPB] IVPB bolus 0, then 1 gm 150 mL/hr, administered: 09/17/2016 11:05:00 PM The following Medications were prescribed to the patient: Zofran (orally disintegrating tablets) 4 mg: take 1 orally every 8 hours as needed for nausea and vomiting. Dispense ten (10). No refill. Substitution is permissible. -- Neto Virgen Dr. Cephalexin 500 mg: take 1 capsule orally every 8 hours for 5 days. No refill.(disp 15 caps) -- Neto Virgen Dr. Magnesium Citrate (10-oz bottle) (available over the counter): take 1 bottle to achieve bowel movement. Repeat after 4 hours if needed.(disp 2 bottles. use on 09/19/2016 if you do not have a bowel movement) -- Neto Virgen Dr. Miralax: take 1 measuring cupful supplied every day as needed for constipation. Dispense twenty-six (26) ounce bottle. No refills. Substitution is permissible. -- Neto Virgen Dr. Percocet 5 mg/325 mg: take 1-2 tablets orally every 6 hours as needed for pain. Dispense twenty (20). No refill. Substitution is permissible. -- Neto Virgen Dr.
--- NOTE | 2016-09-19 01:16 | ED MED RECONCILIATION SUMMARY ---
Patient: ZACK HAINES Medication Reconciliation Report [facility] VisitID: [id number] [place] [address] 25y, F Registration Date/Time: 09/17/2016 Weight: 104.3 kg Height/Length: 69 in. BMI: 34.0 ALLERGIES: No Known Drug Allergy The patient's Home Medications are listed below: STOP TAKING THE FOLLOWING MEDICATIONS: Vicodin Oral 5 mg, 4x a day CONTINUE TAKING THE FOLLOWING MEDICATIONS: Apple Cider Vinegar Oral Citrimax HCA, diet supplement MedroxyPROGESTERone Acetate Oral Tylenol Oral The source(s) of the original Home Medication information: patient The following Medications were given to the patient in the Emergency Department: IV NS IV Fluids bolus 0, then 1000 mL/hr, administered: 09/17/2016 9:26:00 PM Dilaudid [IVP] IVP 1 mg, administered: 09/17/2016 9:28:00 PM Zofran [IVP] IVP 4 mg, administered: 09/17/2016 9:30:00 PM Ceftriaxone [IVPB] IVPB bolus 0, then 1 gm 150 mL/hr, administered: 09/17/2016 11:05:00 PM The following Medications were prescribed to the patient: Zofran (orally disintegrating tablets) 4 mg: take 1 orally every 8 hours as needed for nausea and vomiting. Dispense ten (10). No refill. Substitution is permissible. -- Neto Virgen Dr. Cephalexin 500 mg: take 1 capsule orally every 8 hours for 5 days. No refill.(disp 15 caps) -- Neto Virgen Dr. Magnesium Citrate (10-oz bottle) (available over the counter): take 1 bottle to achieve bowel movement. Repeat after 4 hours if needed.(disp 2 bottles. use on 09/19/2016 if you do not have a bowel movement) -- Neto Virgen Dr. Miralax: take 1 measuring cupful supplied every day as needed for constipation. Dispense twenty-six (26) ounce bottle. No refills. Substitution is permissible. -- Neto Virgen Dr. Percocet 5 mg/325 mg: take 1-2 tablets orally every 6 hours as needed for pain. Dispense twenty (20). No refill. Substitution is permissible. -- Neto Virgen Dr.
--- NOTE | 2016-09-19 01:16 | ED MAR SUMMARY ---
..... Medication Administration Record [facility] [address] [place] [address] Patient: ZACK HAINES Visit ID: [id number] 25y, F Weight: 104.3 kg Height/Length: 69 in BMI: 34 ALLERGIES: No Known Drug Allergy Start 21:26 09/17/2016 Glen White RBrittanyNBrittany, Stop 22:27 09/17/2016 Nicole Rodgers, Medication Administered: IV NS (SALINE), Dose: IV Fluids over 1 hour(s), Rate: 1000 mL/hr, Dispensed: 1000 mL bag, Site: #1 right wrist. Medication Ordered: IV NS : initial bolus 1000 mL (1000 mL/hr), then none - for X1 (NOW). Given 21:28 09/17/2016 Glen White R.N. Medication Administered: DILAUDID [IVP] (HYDROMORPHONE HCL PF), Dose: 1 mg IVP over 2 minute(s), Site: #1 right wrist. Medication Ordered: Dilaudid IV 1 mg (once now. may repeat once in 15 minutes for pain > 5/10). Given 21:30 09/17/2016 Glen White R.N. Medication Administered: ZOFRAN [IVP] (ONDANSETRON HCL), Dose: 4 mg IVP over 2 minute(s), Site: #1 right wrist. Medication Ordered: Zofran IV 4 mg (NOW). Start 23:05 09/17/2016 Glen White R.N. Medication Administered: CEFTRIAXONE [IVPB], Dose: 1 gm IVPB over 20 minute(s), Rate: 150 mL/hr, Dispensed: 50 mL bag, Site: #1 right wrist. Medication Ordered: Ceftriaxone IV 1 gm/50mL (NOW).
--- NOTE | 2016-09-19 01:16 | ED DISCHARGE INSTRUCTIONS ---
Patient: ZACK HAINES General Instructions [facility] VisitID: [id number] [place] [address] 25y, F Registration Date/Time: 09/17/2016 Acute right lower quadrant abdominal pain. 09/17/2016 23:03 HR: 52. RR: 16. O2 saturation: 96%. Pain level now: 07/19. 09/17/2016 20:49 BP: 124/73. HR: 65. RR: 17. O2 saturation: 98%. Temp: 98.1 F. Pain level now: 11/18. Wound check Oxygen saturation normal. Acute urinary tract infection with cystitis and hematuria. INSTRUCTIONS Warnings: GENERAL WARNINGS: Return or contact your physician immediately if your condition worsens or changes unexpectedly, if not improving as expected, or if other problems arise. SPECIFICALLY, return if you develop pain, fever, vomiting, the inability to keep fluids down, blood in vomitus, blood in diarrhea, fainting or lightheadedness. Your Current Medications: STOP TAKING THE FOLLOWING MEDICATIONS: Vicodin Oral : 5 mg 4x a day. CONTINUE TAKING THE FOLLOWING MEDICATIONS: Apple Cider Vinegar Oral. Citrimax HCA, diet supplement*. MedroxyPROGESTERone Acetate Oral. Tylenol Oral. Prescription Medications: Zofran (orally disintegrating tablets) 4 mg: take 1 orally every 8 hours as needed for nausea and vomiting. Dispense ten (10). No refill. Substitution is permissible. Cephalexin 500 mg: take 1 capsule orally every 8 hours for 5 days. No refill. (disp 15 caps) Miralax: take 1 measuring cupful supplied every day as needed for constipation. Dispense twenty-six (26) ounce bottle. No refills. Substitution is permissible. Percocet 5 mg/325 mg: take 1-2 tablets orally every 6 hours as needed for pain. Dispense twenty (20). No refill. Substitution is permissible. OTC Medications: Magnesium Citrate (10-oz bottle) (available over the counter): take 1 bottle to achieve bowel movement. Repeat after 4 hours if needed. (disp 2 bottles. use on 09/19/2016 if you do not have a bowel movement) Follow-up: Return to the emergency department as needed. Follow up with your doctor in three days. Reason for referral: recheck today's concerns. Summary of care provided to patient via paper. Screening today revealed the patient's blood pressure to be in the normal range. The patient should follow up with a primary care provider for blood pressure management. Understanding of the discharge instructions verbalized by patient. ADDITIONAL INFORMATION Bladder Infection,Female (Adult) A bladder infection ("cystitis" or "UTI") usually causes a constant urge to urinate and a burning when passing urine. Urine may be cloudy, smelly or dark. There may be pain in the lower abdomen. A bladder infection occurs when bacteria from the vaginal area enter the bladder opening (urethra). This can occur from sexual intercourse, wearing tight clothing, dehydration and other factors. Home Care: Drink lots of fluids (at least 6-8 glasses a day, unless you must restrict fluids for other medical reasons). This will force the medicine into your urinary system and flush the bacteria out of your body. Avoid sexual intercourse until your symptoms are gone. Avoid caffeine, alcohol and spicy foods. These can irritate the bladder. A bladder infection is treated with antibiotics. You may also be given Pyridium (generic = phenazopyridine) to reduce the burning sensation. This medicine will cause your urine to become a bright orange color. The orange urine may stain clothing. You may wear a pad or panty-liner to protect clothing. Preventing Future Infections: Always wipe from front to back after a bowel movement. Keep the genital area clean and dry. Drink plenty of fluids each day to avoid dehydration. Both sexual partners should wash before intercourse. Urinate right after intercourse to flush out the bladder. Wear cotton underwear and cotton-lined panty hose; avoid tight-fitting pants. If you are on control pills and are having frequent bladder infections, discuss with your doctor. Follow Up: Return to this facility or see your doctor if ALL symptoms are not gone after three days of treatment. Get Prompt Medical Attention if any of the following occur: Fever of 100.4F (38C) or higher, or as directed by your healthcare provider No improvement by the third day of treatment Increasing back or abdominal pain Repeated vomiting; unable to keep medicine down Weakness, dizziness or fainting Vaginal discharge Pain, redness or swelling in the labia (outer vaginal area) Blood In The Urine Blood in the urine ("hematuria") has many possible causes. If it occurs after an injury (such as a car accident or fall), it is most often a sign of bruising to the kidney or bladder. Common medical causes of blood in the urine include urinary tract infection, kidney stone, inflammation, tumors, or certain other diseases of the kidney or bladder. Menstruation can cause blood to appear in the urine sample, although it is not coming from the urinary tract. If only a trace amount of blood is present, it will show up on the urine test, even though the urine may be yellow and not pink or red. This may occur with any of the above conditions, as well as heavy exercise or high fever. In this case, your doctor may want to repeat the urine test on another day. This will show if the blood is still present. If so, then other tests can be done to find out the cause. Home Care: If your urine does not appear bloody (pink, brown or red) then you do not need to restrict your activity in any way. If you can see blood in your urine, rest and avoid heavy exertion until your next exam. Do not use aspirin or anti-inflammatory medicine like ibuprofen (Motrin, Advil) or naproxen (Naprosyn, Aleve). These thin the blood and may increase bleeding. Follow Up with your doctor or as advised by our staff. If you were injured and had blood in your urine, you should have a repeat urine test in 1-2 days. Contact your doctor or return to this facility for this test. [NOTE: A radiologist will review any X-rays that were taken. We will notify you of any new findings that may affect your care.] Get Prompt Medical Attention if any of the following occur: Bright red blood or blood clots in the urine (if a new symptom) Weakness, dizziness or fainting New groin, abdominal or back pain Fever of 100.4F (38C) or higher, or as directed by your healthcare provider Repeated vomiting Bleeding from nose, gums or easy bruising Wound Check, No Infection Your laceration is healing as expected. There is no infection. Home care The following guidelines will help you care for your wound at home: Keep the wound clean and dry. If you were given a bandage, you may change it daily as follows: After removing the bandage, wash the area with soap and water. Use a wet cotton swab to loosen and remove any blood or crust that forms. After cleaning, apply a thin layer of antibiotic ointment. This will keep the wound clean and make it easier to remove the stitches. Reapply a fresh bandage. You may remove the bandage to shower as usual after the first 24 hours, but do not soak the area in water (no swimming) until the sutures are removed. If surgical tape was used, keep the area clean and dry. If it becomes wet, blot it dry with a towel. Follow-up care If sutures or quan are in place, it is important to keep your appointment for removal. If they are left in place too long permanent rivero may remain. If surgical tape closures were applied, you may remove them yourself if they have not fallen of by 10 days after the injury. When to seek medical care Get prompt medical attention if any of the following occur: Increasing pain in the wound Redness, swelling, or pus coming from the wound Fever of 100.4F (38C) or higher, or as directed by your health care provider If sutures or quan come apart or fall out before your next appointment If the surgical tape closures fall off within seven days, or the wound edges re-open Ondansetron Oral disintegrating tablet What is this medicine? ONDANSETRON (on JOELLE se veronica) is used to treat nausea and vomiting caused by chemotherapy. It is also used to prevent or treat nausea and vomiting after surgery. How should I use this medicine? These tablets are made to dissolve in the mouth. Do not try to push the tablet through the foil backing. With dry hands, peel away the foil backing and gently remove the tablet. Place the tablet in the mouth and allow it to dissolve, then swallow. While you may take these tablets with water, it is not necessary to do so. Talk to your net web developer regarding the use of this medicine in children. Special care may be needed. What side effects may I notice from receiving this medicine? Side effects that you should report to your doctor or health day care provider as soon as possible: allergic reactions like skin rash, itching or hives, swelling of the face, lips, or tongue breathing problems dizziness fast or irregular heartbeat feeling faint or lightheaded, falls fever and chills swelling of the hands and feet tightness in the chest Side effects that usually do not require medical attention (report to your doctor or health day care provider if they continue or are bothersome): constipation or diarrhea headache What may interact with this medicine? Do not take this medicine with any of the following medications: -apomorphine -cisapride -dofetilide -dronedarone -pimozide -thioridazine -ziprasidone This medicine may also interact with the following medications: -carbamazepine -phenytoin -rifampicin -tramadol -other medicines that prolong the QT interval (cause an abnormal heart rhythm) What if I miss a dose? If you miss a dose, take it as soon as you can. If it is almost time for your next dose, take only that dose. Do not take double or extra doses. Where should I keep my medicine? Keep out of the reach of children. Store between 2 and 30 degrees C (36 and 86 degrees F). Throw away any unused medicine after the expiration date. What should I tell my health care provider before I take this medicine? They need to know if you have any of these conditions: heart disease history of irregular heartbeat liver disease low levels of magnesium or potassium in the blood an unusual or allergic reaction to ondansetron, granisetron, other medicines, foods, dyes, or preservatives or trying to get breast-feeding What should I watch for while using this medicine? Check with your doctor or health day care provider as soon as you can if you have any sign of an allergic reaction. Cephalexin Monohydrate Oral tablet What is this medicine? CEPHALEXIN (sef a MARTHA in) is a cephalosporin antibiotic. It is used to treat certain kinds of bacterial infections It will not work for colds, flu, or other viral infections. How should I use this medicine? Take this medicine by mouth with a full glass of water. Follow the directions on the prescription label. This medicine can be taken with or without food. Take your medicine at regular intervals. Do not take your medicine more often than directed. Take all of your medicine as directed even if you think you are better. Do not skip doses or stop your medicine early. Talk to your net web developer regarding the use of this medicine in children. While this drug may be prescribed for selected conditions, precautions do apply. What side effects may I notice from receiving this medicine? Side effects that you should report to your doctor or health day care provider as soon as possible: allergic reactions like skin rash, itching or hives, swelling of the face, lips, or tongue breathing problems pain or trouble passing urine redness, blistering, peeling or loosening of the skin, including inside the mouth severe or watery diarrhea unusually weak or tired yellowing of the eyes, skin Side effects that usually do not require medical attention (report to your doctor or health day care provider if they continue or are bothersome): gas or heartburn genital or anal irritation headache joint or muscle pain nausea, vomiting What may interact with this medicine? probenecid some other antibiotics What if I miss a dose? If you miss a dose, take it as soon as you can. If it is almost time for your next dose, take only that dose. Do not take double or extra doses. There should be at least 4 to 6 hours between doses. Where should I keep my medicine? Keep out of the reach of children. Store at room temperature between 59 and 86 degrees F (15 and 30 degrees C). Throw away any unused medicine after the expiration date. What should I tell my health care provider before I take this medicine? They need to know if you have any of these conditions: kidney disease stomach or intestine problems, especially colitis an unusual or allergic reaction to cephalexin, other cephalosporins, penicillins, other antibiotics, medicines, foods, dyes or preservatives or trying to get breast-feeding What should I watch for while using this medicine? Tell your doctor or health day care provider if your symptoms do not begin to improve in a few days. Do not treat diarrhea with over the counter products. Contact your doctor if you have diarrhea that lasts more than 2 days or if it is severe and watery. If you have diabetes, you may get a false-positive result for sugar in your urine. Check with your doctor or health day care provider. Oxycodone Hydrochloride, Acetaminophen Oral tablet What is this medicine? ACETAMINOPHEN; OXYCODONE (a set a MAYA maria dolores fen; ox i KOE done) is a pain reliever. It is used to treat mild to moderate pain. How should I use this medicine? Take this medicine by mouth with a full glass of water. Follow the directions on the prescription label. Take your medicine at regular intervals. Do not take your medicine more often than directed. Talk to your net web developer regarding the use of this medicine in children. Special care may be needed. Patients over 65 years old may have a stronger reaction and need a smaller dose. What side effects may I notice from receiving this medicine? Side effects that you should report to your doctor or health day care provider as soon as possible: allergic reactions like skin rash, itching or hives, swelling of the face, lips, or tongue breathing difficulties, wheezing confusion light headedness or fainting spells severe stomach pain yellowing of the skin or the whites of the eyes Side effects that usually do not require medical attention (report to your doctor or health day care provider if they continue or are bothersome): dizziness drowsiness nausea vomiting What may interact with this medicine? alcohol antihistamines barbiturates like amobarbital, butalbital, butabarbital, methohexital, pentobarbital, phenobarbital, thiopental, and secobarbital benztropine drugs for bladder problems like solifenacin, trospium, oxybutynin, tolterodine, hyoscyamine, and methscopolamine drugs for breathing problems like ipratropium and tiotropium drugs for certain stomach or intestine problems like propantheline, homatropine methylbromide, glycopyrrolate, atropine, belladonna, and dicyclomine general anesthetics like etomidate, ketamine, nitrous oxide, propofol, desflurane, enflurane, halothane, isoflurane, and sevoflurane medicines for depression, anxiety, or psychotic disturbances medicines for sleep muscle relaxants naltrexone narcotic medicines (opiates) for pain phenothiazines like perphenazine, thioridazine, chlorpromazine, mesoridazine, fluphenazine, prochlorperazine, promazine, and trifluoperazine scopolamine tramadol trihexyphenidyl What if I miss a dose? If you miss a dose, take it as soon as you can. If it is almost time for your next dose, take only that dose. Do not take double or extra doses. Where should I keep my medicine? Keep out of the reach of children. This medicine can be abused. Keep your medicine in a safe place to protect it from theft. Do not share this medicine with anyone. Selling or giving away this medicine is dangerous and against the law. Store at room temperature between 20 and 25 degrees C (68 and 77 degrees F). Keep container tightly closed. Protect from light. This medicine may cause accidental overdose and if it is taken by other adults, children, or pets. Flush any unused medicine down the toilet to reduce the chance of harm. Do not use the medicine after the expiration date. What should I tell my health care provider before I take this medicine? They need to know if you have any of these conditions: brain tumor Crohn's disease, inflammatory bowel disease, or ulcerative colitis drink more than 3 alcohol containing drinks per day drug abuse or addiction head injury heart or circulation problems kidney disease or problems going to the bathroom liver disease lung disease, asthma, or breathing problems an unusual or allergic reaction to acetaminophen, oxycodone, other opioid analgesics, other medicines, foods, dyes, or preservatives or trying to get breast-feeding What should I watch for while using this medicine? Tell your doctor or health day care provider if your pain does not go away, if it gets worse, or if you have new or a different type of pain. You may develop tolerance to the medicine. Tolerance means that you will need a higher dose of the medication for pain relief. Tolerance is normal and is expected if you take this medicine for a long time. Do not suddenly stop taking your medicine because you may develop a severe reaction. Your body becomes used to the medicine. This does NOT mean you are addicted. Addiction is a behavior related to getting and using a drug for a non-medical reason. If you have pain, you have a medical reason to take pain medicine. Your doctor will tell you how much medicine to take. If your doctor wants you to stop the medicine, the dose will be slowly lowered over time to avoid any side effects. You may get drowsy or dizzy. Do not drive, use machinery, or do anything that needs mental alertness until you know how this medicine affects you. Do not stand or sit up quickly, especially if you are an older patient. This reduces the risk of dizzy or fainting spells. Alcohol may interfere with the effect of this medicine. Avoid alcoholic drinks. There are different types of narcotic medicines (opiates) for pain. If you take more than one type at the same time, you may have more side effects. Give your health care provider a list of all medicines you use. Your doctor will tell you how much medicine to take. Do not take more medicine than directed. Call emergency for help if you have problems breathing. The medicine will cause constipation. Try to have a bowel movement at least every 2 to 3 days. If you do not have a bowel movement for 3 days, call your doctor or health day care provider. Do not take Tylenol (acetaminophen) or medicines that have acetaminophen with this medicine. Too much acetaminophen can be very dangerous. Many nonprescription medicines contain acetaminophen. Always read the labels carefully to avoid taking more acetaminophen. You have been given the following additional information: Bladder Infection, Female (Adult) Hematuria Wound Check, Lac F/U (No Infection) Ondansetron Oral disintegrating tablet Cephalexin Monohydrate Oral tablet Oxycodone Hydrochloride, Acetaminophen Oral tablet (Electronically signed by Neto Virgen Dr. 09/19/2016 1:15)
== END 2016-09-17 23:38 | disposition home or self-care (01) ==
LOC: ED SRH 20:41
DX: N30.01 Acute cystitis with hematuria (principal); R10.31 Right lower quadrant pain; Z98.890 Other specified postprocedural states; Z48.89 Encounter for other specified surgical aftercare; Z79.891 Long term (current) use of opiate analgesic; Z79.899 Other long term (current) drug therapy
CPT/HCPCS: 90004; 90100; 90469; 95059